=== PATIENT | female | born 1990 | race African-American/Black ===

== ENCOUNTER 2017-10-01 17:06 | Emergency (ER) | payer OTHER ==
--- NOTE | 2017-10-01 18:46 | ER ---
Nurse's Notes [facility] Name: Drea Jackson Age: 27 yrs Sex: Female : 1990 Arrival Date: 10/01/2017 Time: 17:11 Bed 30 Private MD: Diagnosis: Muscle spasm Presentation: 10/01 17:25 Presenting complaint: Patient states: Sudden onset neck pain while driving today just aj [employer]. Reports pain is worse when turning head to right. Transition of care: patient was not received from another setting of care. Onset of symptoms was October 01, 2017. Risk Assessment: Do you want to hurt yourself or someone else? Patient reports no desire to harm self or others. Initial Sepsis Screen: Does the patient meet any 2 criteria? No. Patient's initial sepsis screen is negative. Does the patient have a suspected source of infection? No. Patient's initial sepsis screen is negative. Care prior to arrival: None. 17:25 Method Of Arrival: Ambulatory aj 17:25 Acuity: SAM 4 aj Triage Assessment: 17:26 General: Appears in no apparent distress. uncomfortable, Behavior is calm, cooperative, aj appropriate for age. Pain: Complains of pain in right mid cervical area, right trapezius, right posterior aspect of neck and right lateral aspect of neck. Neuro: Level of Consciousness is awake, alert, obeys commands, Oriented to person, place, time, situation, Appropriate for age. Respiratory: Airway is patent Respiratory effort is even, unlabored, Respiratory pattern is regular, symmetrical. Derm: Skin is intact, is healthy with good turgor, Skin is pink, warm \T\ dry. normal. Musculoskeletal: Reports pain in occiput, right mid cervical area, lower cervical area, right trapezius, right posterior aspect of neck and right lateral aspect of neck. 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 - Social history:: Smoking status: Patient/guardian denies using tobacco. - Ebola Screening: : Patient negative for fever greater than or equal to 101.5 degrees Fahrenheit, and additional compatible Ebola Virus Disease symptoms Patient denies exposure to infectious person Patient denies travel to an Ebola-affected area in the 21 days before illness onset No symptoms or risks identified at this time. Screenin:56 Abuse screen: Denies threats or abuse. Nutritional screening: No deficits noted. tl3 Tuberculosis screening: No symptoms or risk factors identified. Fall Risk None identified. Assessment: 17:53 General: Appears uncomfortable, well groomed, well developed, well nourished, Behavior tl3 is calm, cooperative, appropriate for age. Pain: Complains of pain in right posterior aspect of neck. Neuro: No deficits noted. Level of Consciousness is awake, alert, Oriented to person, place, time, situation, Appropriate for age. Cardiovascular: No deficits noted. Patient's skin is warm and dry. Respiratory: Airway Respiratory effort is even, unlabored, Respiratory pattern is regular, symmetrical. GI: No signs and/or symptoms were reported involving the gastrointestinal system. : No signs and/or symptoms were reported regarding the genitourinary system. EENT: No signs and/or symptoms were reported regarding the EENT system. Derm: No signs and/or symptoms reported regarding the dermatologic system. Musculoskeletal: Reports pain in right posterior aspect of neck pain started just [employer], no injury repoted. Vital Signs: 17:26 BP 139 / 76; Pulse 85; Resp 16; Temp 97.0; Pulse Ox 99% on R/A; Weight 97.52 kg; Height aj 5 ft. 5 in. (165.10 cm); 17:53 BP 127 / 75; Pulse 82; Resp 18; Pulse Ox 98% ; tl3 17:26 Body Mass Index 35.78 (97.52 kg, 165.10 cm) aj ED Course: 17:11 Patient arrived in ED. sb2 17:26 Triage completed. aj 17:26 Arm band placed on left wrist. Patient placed in waiting room, Patient notified of wait aj time. 17:43 Divine Shukla, NAMAN is Primary Nurse. tl3 17:49 Curits Mcgee PA is PHCP. jr8 17:49 Thanh Barber MD is Attending Physician. jr8 17:56 Patient has correct armband on for positive identification. Pulse ox on. NIBP on. tl3 17:56 No provider procedures requiring assistance completed. tl3 19:19 Patient did not have IV access during this emergency room visit. tl3 Administered Medications: No medications were administered Outcome: 18:45 Discharge ordered by MD. rodriguez 19:19 Eloped from patient exam room, Time discovered patient gone: October 01, 2017 at 19:00 tl3 19:19 Condition: pt not in room to sign discharge instructions tl3 19:20 Patient left the ED. tl3 Signatures: Yuly Reddy RN RN Curtis Wagner PA PA jr8 Katharine Griffiths sb2 Divine Shukla, NAMAN RN tl3
--- NOTE | 2017-10-01 18:46 | EDPHYS ---
Physician Documentation [facility] Name: Drea Jackson Age: 27 yrs Sex: Female : 1990 Arrival Date: 10/01/2017 Time: 17:11 Bed 30 Private MD: ED Physician Thanh Barber HPI: 10/01 18:33 This 27 yrs old Black Female presents to ER via Ambulatory with complaints of Neck jr8 Pain, <24hrs Old. 18:33 The patient or guardian complains of decreased range of motion, pain, spasm, jr8 tenderness. The symptoms are located on the right trapezius. Onset: The symptoms/episode began/occurred acutely, today. Context: occurred while driving. Associated signs and symptoms: The patient has no apparent associated signs or symptoms. The pain does not radiate. Modifying factors: The symptoms are alleviated by nothing. the symptoms are aggravated by movement, pressure. Severity of symptoms: At their worst the symptoms were mild, in the emergency department the symptoms are unchanged. The patient has not experienced similar symptoms in the past. The patient has not recently seen a physician. 7 months . Does not know what she can do for it . 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 - Social history:: Smoking status: Patient/guardian denies using tobacco. - Ebola Screening: : Patient negative for fever greater than or equal to 101.5 degrees Fahrenheit, and additional compatible Ebola Virus Disease symptoms Patient denies exposure to infectious person Patient denies travel to an Ebola-affected area in the 21 days before illness onset No symptoms or risks identified at this time. ROS: 18:33 Eyes: Negative for injury, pain, redness, and discharge, ENT: Negative for injury, jr8 pain, and discharge, Cardiovascular: Negative for chest pain, palpitations, and edema, Respiratory: Negative for shortness of breath, cough, wheezing, and pleuritic chest pain, Abdomen/GI: Negative for abdominal pain, nausea, vomiting, diarrhea, and constipation, Back: Negative for injury and pain, MS/Extremity: Negative for injury and deformity, Skin: Negative for injury, rash, and discoloration, Neuro: Negative for headache, weakness, numbness, tingling, and seizure. 18:33 Neck: Positive for pain with movement, pain at rest, stiffness, tenderness. Exam: 18:33 Eyes: Pupils equal round and reactive to light, extra-ocular motions intact. Lids and jr8 lashes normal. Conjunctiva and sclera are non-icteric and not injected. Cornea within normal limits. Periorbital areas with no swelling, redness, or edema. ENT: Nares patent. No nasal discharge, no septal abnormalities noted. Tympanic membranes are normal and external auditory canals are clear. Oropharynx with no redness, swelling, or masses, exudates, or evidence of obstruction, uvula midline. Mucous membranes moist. Cardiovascular: Regular rate and rhythm with a normal S1 and S2. No gallops, murmurs, or rubs. Normal PMI, no JVD. No pulse deficits. Respiratory: Lungs have equal breath sounds bilaterally, clear to auscultation and percussion. No rales, rhonchi or wheezes noted. No increased work of breathing, no retractions or nasal flaring. Abdomen/GI: Soft, non-tender, with normal bowel sounds. No distension or tympany. No guarding or rebound. No evidence of tenderness throughout. Back: No spinal tenderness. No costovertebral tenderness. Full range of motion. Skin: Warm, dry with normal turgor. Normal color with no rashes, no lesions, and no evidence of cellulitis. MS/ Extremity: Pulses equal, no cyanosis. Neurovascular intact. Full, normal range of motion. Neuro: Awake and alert, GCS 15, oriented to person, place, time, and situation. Cranial nerves II-XII grossly intact. Motor strength 5/5 in all extremities. Sensory grossly intact. Cerebellar exam normal. Normal gait. 18:33 Neck: External neck: tenderness, that is moderate, of the right trapezius, C-spine: appears grossly normal, no vertebral tenderness, no crepitus, Thyroid: appears normal, Trachea: is midline with no obvious abnormalities, ROM/movement: pain, that is moderate, with any movement, Lymph nodes: no appreciated lymphadenopathy. Vital Signs: 17:26 BP 139 / 76; Pulse 85; Resp 16; Temp 97.0; Pulse Ox 99% on R/A; Weight 97.52 kg; Height aj 5 ft. 5 in. (165.10 cm); 17:53 BP 127 / 75; Pulse 82; Resp 18; Pulse Ox 98% ; tl3 17:26 Body Mass Index 35.78 (97.52 kg, 165.10 cm) MDM: 17:49 Patient medically screened. jr8 18:33 Data reviewed: vital signs, nurses notes, and as a result, I will discharge patient. jr8 Data interpreted: Pulse oximetry: on room air is 98 %. Interpretation: normal. Counseling: I had a detailed discussion with the patient and/or guardian regarding: the historical points, exam findings, and any diagnostic results supporting the discharge/admit diagnosis, the need for outpatient follow up, a family practitioner, to return to the emergency department if symptoms worsen or persist or if there are any questions or concerns that arise at home. 18:46 ED course: Discussed with patient other then tylenol and heating pad along with jr8 massages. Nothing else she can do at this time due to . Administered Medications: No medications were administered Disposition: 10/01/17 18:45 Discharged to Home. Impression: Muscle spasm. - Condition is Stable. - Discharge Instructions: Muscle Cramps and Spasms. - Medication Reconciliation Form, Thank You Letter, Antibiotic Education, Prescription Opioid Use form. - Follow up: Private Physician; When: 2 - 3 days; Reason: Recheck today's complaints, Continuance of care, Re-evaluation by your physician. - Problem is new. - Symptoms have improved. Addendum: 10/03/2017 13:37 Co-signature as Attending Physician, Thanh Barber MD. g s Signatures: Yuly Reddy, RN RN Curtis Wagner PA PA jr8 Thanh Barber MD MD gs Lowrey, Tammy, RN RN tl3 Corrections: (The following items were deleted from the chart) 10/01 19:20 18:45 10/01/2017 18:45 Discharged to Home. Impression: Muscle spasm. Condition is tl3 Stable. Forms are Medication Reconciliation Form, Thank You Letter, Antibiotic Education, Prescription Opioid Use. Follow up: Private Physician; When: 2 - 3 days; Reason: Recheck today's complaints, Continuance of care, Re-evaluation by your physician. Problem is new. Symptoms have improved. jr8
== END 2017-10-01 19:20 | disposition home or self-care (01) ==
LOC: ER 17:06
DX: M62.838 Other muscle spasm (principal); M79.7 Fibromyalgia; Z3A.28 28 weeks gestation of pregnancy
CPT/HCPCS: 99282